=== PATIENT | male | born 1990 | race Caucasian/White ===

== ENCOUNTER 2020-08-05 12:04 | Emergency (ER) | payer SELFPAY ==
[~2020-08-05] VITALS: Ht 175.3 cm; Wt 100.0 kg
[~2020-08-05 12:04] MED LIST: FLEXERIL OR; NO CURRENT MEDS; PROTONIX40 MG PO; ULTRAM50 M1 PO
[2020-08-05] MEDS ORDERED: KEFLEX500 M1 PO (14:07)
[2020-08-05 14:19] VITALS: BP 130/76
== END 2020-08-05 14:20 | disposition home or self-care (01) | DRG 605 ==
LOC: ED 12:04
DX: S91.115A Laceration without foreign body of left lesser toe(s) without damage to nail, initial encounter (principal); F17.200 Nicotine dependence, unspecified, uncomplicated; X58.XXXA Exposure to other specified factors, initial encounter; Y93.9 Activity, unspecified; Y92.007 Garden or yard of unspecified non-institutional (private) residence as the place of occurrence of the external cause